=== PATIENT | male | born 1935 | race Caucasian/White ===

== ENCOUNTER 2018-02-04 15:59 | Emergency (ER) | payer MEDICARE, BC ==
[~2018-02-04] VITALS: Ht 167.6 cm; Wt 77.1 kg
[2018-02-04] MEDS ORDERED: ONDANSETRON 4 MG/2 ML VIAL IV ONE (16:15)
[2018-02-04] MEDS ORDERED: MORPHINE SULFATE 2 MG/1 ML DISP.SYRIN IV ONE ×2 (16:15→17:00)
--- NOTE | 2018-02-04 16:18 | NUR ---
PT IS IN ROOM #1B. DR FAN EVALUATED THE PT.
[2018-02-04] MEDS ORDERED: IOHEXOL 350 100 ML INFUS..BTL ONE (16:21)
[2018-02-04] MEDS ORDERED: IV NORMAL SALINE 250 ML IV ONE (16:21)
[2018-02-04] MEDS ORDERED: NORMAL SALINE FLUSH 10 ML DISP.SYRIN ONE (16:21)
[2018-02-04] MEDS ORDERED: SWABABLE VALVE TRANSFER SET EA MC ONE (16:21)
[2018-02-04] MEDS ORDERED: MORPHINE SULFATE 2 MG/1 ML DISP.SYRIN ONE ×2 (16:25→17:09)
[2018-02-04] MEDS ORDERED: ONDANSETRON 4 MG/2 ML VIAL ONE (16:25)
[2018-02-04 16:31] LABS: BASOPHILS # (AUTO) 0.1 K/uL (0.0-8.0); BASOPHILS % (AUTO) 0.7 % (0.0-2.0); EOSINOPHILS # (AUTO) 0.2 K/uL (0.0-0.7); EOSINOPHILS % (AUTO) 2.8 % (0.0-7.0); HEMATOCRIT 38.4 % (36.7-47.1); HEMOGLOBIN 12.6 g/dL (12.5-16.3); LYMPHOCYTES # (AUTO) 1.1 K/uL (20.0-40.0); LYMPHOCYTES % (AUTO) 15.6 % (20.5-51.5); MEAN CORPUSCULAR HEMOGLOBIN 30.9 uug (23.8-33.4); MEAN CORPUSCULAR HGB CONC 33 g/dL (32.5-36.3); MEAN CORPUSCULAR VOLUME 94.4 fL (73.0-96.2); MONOCYTES # (AUTO) 0.6 K/uL (2.0-10.0); MONOCYTES % (AUTO) 7.5 % (0.0-11.0); NEUTROPHILS # (AUTO) 5.4 K/uL (1.8-8.9); NEUTROPHILS % (AUTO) 73.4 % (38.5-71.5); PLATELET COUNT (AUTO) 140 K/uL (152-348); RED BLOOD CELL COUNT(AUTO) 4.07 MIL/uL (4.06-5.63); WHITE BLOOD COUNT (AUTO) 7.4 K/uL (3.6-10.2)
[2018-02-04 16:57] LABS: CARBON DIOXIDE 29 mmol/L (21-32); CHLORIDE 97 mmol/L (98-107); CREATININE 3.5 mg/dL (0.6-1.3); GLUCOSE 139 mg/dL (74-106); POTASSIUM 3.6 mmol/L (3.5-5.1); UREA NITROGEN, BLOOD 32 mg/dL (7-18)
[2018-02-04 17:03] LABS: ALANINE AMINOTRANSFERASE 22 U/L (16-63); ALKALINE PHOSPHATASE 98 U/L (50-136); ASPARTATE AMINOTRANSFERASE 21 U/L (15-37); BILIRUBIN,DIRECT 0.1 mg/dL (0.0-0.2); BILIRUBIN,TOTAL 0.7 mg/dL (0.2-1.0); TOTAL PROTEIN, SERUM 7.4 g/dL (6.4-8.2)
[2018-02-04] MEDS ORDERED: WARF3TAB29 PO (17:19)
[2018-02-04] MEDS ORDERED: CALC667C6 PO (17:19)
[2018-02-04] MEDS ORDERED: AMLO5TAB4 PO ×3 (17:19)
[2018-02-04] MEDS ORDERED: CINA30TA2 PO (17:19)
[2018-02-04] MEDS ORDERED: ALLO100T PO (17:19)
[2018-02-04] MEDS ORDERED: EPOE1VIA4 IV (17:19)
[2018-02-04] MEDS ORDERED: WARF2TAB57 PO (17:19)
[2018-02-04] MEDS ORDERED: BLOO-140 IN (17:19)
[2018-02-04] MEDS ORDERED: GABA-534 PO (17:19)
[2018-02-04] MEDS ORDERED: DOXE2VIA IV (17:19)
[2018-02-04] MEDS ORDERED: ATOR40TA PO (17:19)
[2018-02-04] MEDS ORDERED: LORA-258 PO (17:19)
[2018-02-04] MEDS ORDERED: ASPI81TA31 PO (17:19)
[2018-02-04] MEDS ORDERED: FOLI0.8T7 PO (17:19)
[2018-02-04] MEDS ORDERED: NITR0.4T SL (17:19)
[2018-02-04] MEDS ORDERED: DICL75TA5 PO (17:19)
--- NOTE | 2018-02-04 17:56 | NUR ---
PT CAME BACK FROM CT DEPARTMENT. DR FAN TALKED TO THE PT AND TO HIS TO EXPLAIN THEM THAT PT SHOULD HAVE DIALYSIS DONE IN [address]AN. PT WERBALIZED FULL UNDERSTANDING.
--- NOTE | 2018-02-04 18:42 | NUR ---
PT WAS RE-EVALUATED BY DR FAN. PT WAS D/C TO HOME. D/C INSTRUCTIONS GIVEN TO THE PT AND TO HIS . NO S/S OF DISTRESS AT THE TIME OF DISCHARGE.
[2018-02-04 18:44] VITALS: BP 141/81
== END 2018-02-04 18:48 | disposition home or self-care (01) ==
LOC: ER 16:01
DX: M54.2 Cervicalgia (principal); I12.0 Hypertensive chronic kidney disease with stage 5 chronic kidney disease or end stage renal disease; E11.22 Type 2 diabetes mellitus with diabetic chronic kidney disease; N18.6 End stage renal disease
CPT/HCPCS: 36415; 71045; 71275; 80048; 80076; 84484; 85025; 85730; 93005; 96374; 96375; 96376; 99285; A4217; A4663; J2270 ×2; J2405; J3490; J7050; Q9967; 70030-TC